=== PATIENT | female | born 1950 | race Caucasian/White ===

== ENCOUNTER 2022-02-16 18:14 | Inpatient (IN) | payer MEDICARE, OTHER ==
[~2022-02-16] VITALS: Ht 162.6 cm; Wt 81.8 kg
--- NOTE | 2022-02-16 18:41 | NUR ---
TO ER BED 1, [id number] FROM HOME C/O WEAKNESS X1WEEK, DIAGNOSED WITH BRAIN TUMOR 3DAYS AGO, BG 122, AAOX4, BREATHING EVEN AND NON LABORED, CONNECTED TO MONITOR, AWAITING MD ORDERS
[2022-02-16] MEDS ORDERED: ALPR0.25 PO (18:50)
[2022-02-16] MEDS ORDERED: LEVO112T5 PO (18:50)
[2022-02-16] MEDS ORDERED: ESCI10TA PO (18:50)
[2022-02-16] MEDS ORDERED: OMEP20TA20 PO (18:50)
--- NOTE | 2022-02-16 19:00 | NUR ---
COVID TEST COLLECTED AND SENT
--- NOTE | 2022-02-16 19:11 | NUR ---
Report given to nurse Sonia for ramon
[2022-02-16 19:51] LABS: BASOPHILS % (AUTO) 0.5 % (0.0-2.0); EOSINOPHILS % (AUTO) 2.3 % (0.0-6.0); HEMATOCRIT 42 % (33-45); HEMOGLOBIN 14.5 g/dL (11.5-14.8); LYMPHOCYTES # (AUTO) 2.7 K/uL (0.8-4.8); LYMPHOCYTES % (AUTO) 32.5 % (20.0-44.0); MEAN CORPUSCULAR HGB CONC 34 g/dl (31.0-36.0); MEAN CORPUSCULAR VOLUME 89 fL (82-100); MONOCYTES # (AUTO) 0.6 K/uL (0.1-1.30); MONOCYTES % (AUTO) 6.8 % (2.0-12.0); NEUTROPHILS # (AUTO) 4.9 K/uL (1.8-8.9); NEUTROPHILS % (AUTO) 57.9 % (43.0-81.0); PLATELET COUNT (AUTO) 303 K/uL (150-450); WHITE BLOOD COUNT (AUTO) 8.4 K/uL (4.3-11.0)
--- NOTE | 2022-02-16 19:53 | NUR ---
URINE COLLECTED AND SENT
[2022-02-16 19:58] LABS: CALCIUM, SERUM 8.7 mg/dL (8.5-10.1); CARBON DIOXIDE 32 mmol/L (21-32); CHLORIDE 107 mmol/L (98-107); CREATININE 0.8 mg/dL (0.6-1.3); GLUCOSE 111 mg/dL (74-106); POTASSIUM 4.5 mmol/L (3.5-5.1); SODIUM SERUM 146 mmol/L (136-145); UREA NITROGEN, BLOOD 9 mg/dL (7-18)
[2022-02-16 20:01] LABS: BILIRUBIN,URINE NEGATIVE (NEGATIVE); COLOR,URINE YELLOW (YELLOW); LEUKOCYTE ESTERASE ,URINE MODERATE (NEGATIVE); NITRITE, URINE POSITIVE (NEGATIVE); PROTEIN,URINE NEGATIVE (NEGATIVE); UGLUCOSE NEGATIVE (NEGATIVE); UROBILINOGEN,URINE 0.2 EU/dL (0.2)
[2022-02-16 20:07] LABS: ALANINE AMINOTRANSFERASE 23 U/L (12-78); ALBUMIN 3.6 g/dL (3.4-5.0); ALKALINE PHOSPHATASE 76 U/L (46-116); ASPARTATE AMINOTRANSFERASE 21 U/L (15-37); TOTAL PROTEIN, SERUM 6.5 g/dL (6.4-8.2)
[2022-02-16 20:09] LABS: BACTERIA,URINE Many /HPF (None Seen)
[2022-02-16 20:10] LABS: SQUAMOUS EPITHELIAL CELL,UR Few /HPF (None Seen)
[2022-02-16 20:55] LABS: BILIRUBIN,DIRECT 0.2 mg/dL (0.0-0.2); BILIRUBIN,TOTAL 0.4 mg/dL (0.2-1.0)
--- NOTE | 2022-02-16 21:18 | NUR ---
AT BEDSIDE DISCUSSING PLAN WITH
[2022-02-16] MEDS ORDERED: ALPRAZOLAM 0.5 MG TABLET PO PRN ×2 (22:00→22:30)
[2022-02-16] MEDS ORDERED: CEFTRIAXONE 1 G in IV D5W 50 ML IV SCH ×2 (22:00→23:15)
[2022-02-16] MEDS ORDERED: Z GUARD REMEDY 4 OZ OINT TP PRN (22:00)
[2022-02-16] MEDS ORDERED: MAGNESIUM HYDROXIDE 30 ML UDC PO PRN (22:00)
[2022-02-16] MEDS ORDERED: ONDANSETRON HCL/PF 4 MG/2 ML VIAL IVP PRN (22:00)
[2022-02-16] MEDS ORDERED: IV NS 0.9% 1,000 ML IV PRN (22:00)
[2022-02-16] MEDS ORDERED: ACETAMINOPHEN 325 MG TABLET PO PRN (22:00)
[2022-02-16] MEDS ORDERED: HYDROCODONE/APAP 5/325MG TABLET PO PRN (22:00)
[2022-02-16] MEDS ORDERED: MORPHINE SULFATE INJ 2 MG/ML DISP.SYRIN IV PRN (22:00)
[2022-02-16] MEDS ORDERED: MAG HYDROX/AL HYDROX/SIMETH 30 ML UDC PO PRN (22:00)
[2022-02-16] MEDS ORDERED: CEFTRIAXONE 1GM BAG (ER ONLY) 50 ML IV ONE (22:08)
[2022-02-16] MEDS ORDERED: MECLIZINE HCL 12.5 MG TABLET PO PRN (22:30)
[2022-02-16] MEDS ORDERED: IOHEXOL-350 100 ML VIAL IV ONE (22:49)
[2022-02-16] MEDS ORDERED: IV NS 0.9% 250 ML IV ONE (22:49)
[2022-02-16] MEDS ORDERED: CT SWABBABLE VALVE TRANS SET 1 EA INFUS.SET MC ONE (22:49)
--- NOTE | 2022-02-16 23:45 | NUR ---
CALLED TO GIVE REPORT 3 WEST TO RETURN CALL NURSE IS BUSY.
--- NOTE | 2022-02-17 00:26 | NUR ---
REPORT GIVEN TO DIANA AYERS
--- NOTE | 2022-02-17 01:00 | NUR ---
PT TRANSFERRED TO [facility]
[2022-02-17 01:16] VITALS: BP 152/72
--- NOTE | 2022-02-17 06:55 | NUR ---
ADMITTED PATIENT FROM ED DUE TO DIZZINESS, FROM HOME, S/P FALL, DIAGNOSIS SYNCOPE AND VERTIGO. ALERT/ORIENTED X4, STABLE ON ROOM AIR, NO COMPLAIN OF PAIN, UNSTEADY GAIT, COMPLAINING OF DIZZINESS UPON STANDING, 2 PERSON ASSIST. HISTORY OF BRAIN CA, BREAST CA, LUNG CA. STARTED ON ROCEPHIN FOR UTI, NS AT 75 ML/HR, PT EVAL, CARDIO CONSULT WITH DR. LUNDY AND NEURO CONSULT WITH DR. VILLA,
--- NOTE | 2022-02-17 07:15 | NUR ---
RN OPENING NOTES RECEIVED PATIENT IN BED AWAKE, A/O X4, VERBALLY RESPONSIVE. NO SIGNS OF ACUTE RESPIRATORY DISTRESS NOTED. ON ROOM AIR, TOLERATING WELL. NOTED WITH IV ACCESS ON RIGHT ANTECUBITAL AREA #20G, INTACT AND PATENT WITH NS @ 75 ML/HR RUNNING. PATIENT WITH C/O HEADACHE. SAFETY MEASURE IN PLACE. BED IN LOWEST AND LOCKED POSITION, SIDE RAILS UP X2, CALL LIGHT PLACED WITHIN EASY REACH. WILL CONTINUE TO MONITOR PATIENT.
[2022-02-17] MEDS ORDERED: LEVOTHYROXINE SODIUM 137 MCG TABLET PO SCH (07:30)
[2022-02-17] MEDS ORDERED: PANTOPRAZOLE 40 MG TABLET.DR PO SCH (07:30)
--- NOTE | 2022-02-17 07:36 | NUR ---
RN NOTE NORCO 5/325 MG GIVEN FOR C/O PAIN. WILL CONTINUE TO MONITOR PATIENT.
[2022-02-17 08:03] LABS: BASOPHILS % (AUTO) 0.8 % (0.0-2.0); EOSINOPHILS % (AUTO) 2.6 % (0.0-6.0); HEMATOCRIT 45 % (33-45); HEMOGLOBIN 15.1 g/dL (11.5-14.8); LYMPHOCYTES # (AUTO) 1.9 K/uL (0.8-4.8); LYMPHOCYTES % (AUTO) 29.8 % (20.0-44.0); MEAN CORPUSCULAR HGB CONC 33 g/dl (31.0-36.0); MEAN CORPUSCULAR VOLUME 90 fL (82-100); MONOCYTES # (AUTO) 0.4 K/uL (0.1-1.30); NEUTROPHILS # (AUTO) 3.8 K/uL (1.8-8.9); NEUTROPHILS % (AUTO) 60.8 % (43.0-81.0); PLATELET COUNT (AUTO) 275 K/uL (150-450); RED BLOOD CELL COUNT(AUTO) 5.01 MIL/uL (4.0-5.2); WHITE BLOOD COUNT (AUTO) 6.3 K/uL (4.3-11.0)
[2022-02-17 08:16] LABS: CALCIUM, SERUM 8.5 mg/dL (8.5-10.1); CREATININE 0.7 mg/dL (0.6-1.3); MAGNESIUM 2.3 mg/dL (1.8-2.4); PHOSPHORUS 4.1 mg/dL (2.5-4.9); POTASSIUM 4.2 mmol/L (3.5-5.1)
[2022-02-17 08:34] LABS: THYROID STIMULATING HORMONE 0.047 uIU/mL (0.358-3.74)
[2022-02-17] MEDS ORDERED: ESCITALOPRAM OXALATE (10 MG) 10 MG TABLET PO SCH (09:00)
--- NOTE | 2022-02-17 11:11 | NUR ---
[facility] NOTE PATIENT DISCHARGED HOME IN STABLE CONDITION. PATIENT ALERT AND ORIENTED X4, VERBALLY RESPONSIVE. NO SIGNS OF ACUTE DISTRESS NOTED. DENIES ANY DIZZINESS OR ANY PAIN. IV ACCESS ON RIGHT AC REMOVED, NO BLEEDING NOTED, PRESSURE DRESSING APPLIED TO SITE. ARM NAME BAND REMOVED. EXIT CARE FOLDER GIVEN TO PATIENT. ALL BELONGINGS ACCOUNTED FOR, FORMS SIGNED BY PATIENT. DISCHARGE INSTRUCTIONS PROVIDED TO PATIENT WITH VERBALIZATION OF UNDERSTANDING. PATIENT CALLED [facility]BER TO PICK HER UP. PATIENT LEFT UNIT @ 1106. DELILAH BINGHAM ACCOMPANIED PATIENT TO THE LOBBY. CN AWARE OF DISCHARGE.
== END 2022-02-17 11:30 | disposition home or self-care (01) | DRG 74 ==
LOC: ER 18:17 → TRANSITION 23:05 → TELE 23:17 → MED 02-17 00:40
PROVIDERS: ADMIT Nurse Practitioner Acute Care; ATTEND Internal Medicine
DX: G90.8 Other disorders of autonomic nervous system (principal); N39.0 Urinary tract infection, site not specified; C79.31 Secondary malignant neoplasm of brain; F32.A Depression, unspecified; F17.210 Nicotine dependence, cigarettes, uncomplicated; Z90.49 Acquired absence of other specified parts of digestive tract; Z92.3 Personal history of irradiation; Z85.828 Personal history of other malignant neoplasm of skin; Z90.710 Acquired absence of both cervix and uterus; Z85.118 Personal history of other malignant neoplasm of bronchus and lung; Z85.3 Personal history of malignant neoplasm of breast; E03.9 Hypothyroidism, unspecified; E66.9 Obesity, unspecified; H81.10 Benign paroxysmal vertigo, unspecified ear; R51.9 Headache, unspecified; H83.09 Labyrinthitis, unspecified ear; Z68.31 Body mass index [BMI] 31.0-31.9, adult; G62.9 Polyneuropathy, unspecified; W18.30XA Fall on same level, unspecified, initial encounter; Y93.9 Activity, unspecified; Y92.009 Unspecified place in unspecified non-institutional (private) residence as the place of occurrence of the external cause; Z20.822 Contact with and (suspected) exposure to COVID-19; B96.20 Unspecified Escherichia coli [E. coli] as the cause of diseases classified elsewhere
CPT/HCPCS: 36415; 70450-TC; 70496-TC; 71045-TC; 80048-TC; 80076-TC; 81001; 83735-TC; 84100-TC; 84439-TC; 84443-TC; 84484-TC; 85025-TC; 85730-TC; 87086-TC; 87186-TC; 97116-TC; 97530-TC; C9803; G0378; J0696; J2270; J2405; J7030; J7050; J7060; J8597; Q9967